=== PATIENT | male | born 1995 | race Caucasian/White ===

== ENCOUNTER 2019-07-01 17:40 | Emergency (ER) | payer BC ==
--- NOTE | 2019-07-01 18:24 | EDM.PDOC ---
ED HPI GENERAL MEDICAL PROBLEM - General Chief Complaint: Abdominal Pain Stated Complaint: VOMITING BLOOD Time Seen by Provider: 07/01/19 18:10 Source of Information: Reports: Patient History Limitations: Reports: No Limitations - History of Present Illness INITIAL COMMENTS - FREE TEXT/NARRATIVE: pt c/o sharp nonradiating 5/10 epigastric pain x 3-4 hrs, with nausea and recurrent emesis , indicated noticing blood with emesis, denies any blood in stool or diarrhea, report nl BM this morning, denies fever chills or any other associated sx, pt denies Hx of similar problems or any significant morbidities. pt report drinking 10 beers last night and denies heavy regular alcohol use. mid abd Pain Score (Numeric/FACES): 8 - Related Data Allergies Allergy/AdvReac Type Severity Reaction Status Date / Time No Known Allergies Allergy Verified 07/01/19 17:53 Home Meds: Home Meds NK [No Known Home Meds] 07/01/19 [History] Past Medical History - Past Health History Medical/Surgical History: Denies Medical/Surgical History Social & Family History - Tobacco Use Smoking Status *Q: Never Smoker - Caffeine Use Caffeine Use: Reports: None - Alcohol Use Days Per Week of Alcohol Use: 2 Number of Drinks Per Day: 12 Total Drinks Per Week: 24 - Recreational Drug Use Recreational Drug Use: No ED ROS GENERAL - Review of Systems Review Of Systems: See Below Constitutional: Reports: Fatigue. Denies: Fever, Chills HEENT: Reports: No Symptoms Respiratory: Reports: No Symptoms Cardiovascular: Reports: No Symptoms GI/Abdominal: Reports: Abdominal Pain, Anorexia, Decreased Appetite, Hematemesis , Nausea, Vomiting. Denies: Black Stool, Bloody Stool, Constipation, Diarrhea, Difficulty Swallowing, Hematochezia, Melena : Reports: No Symptoms Musculoskeletal: Reports: No Symptoms Neurological: Reports: No Symptoms Psychiatric: Reports: No Symptoms ED EXAM, GENERAL - Physical Exam Exam: See Below Exam Limited By: No Limitations General Appearance: Alert, Mild Distress. No: Anxious Nose: Normal Inspection Throat/Mouth: Normal Inspection, Normal Oropharynx Head: Atraumatic Neck: Normal Inspection, Supple, Full Range of Motion Respiratory/Chest: No Respiratory Distress, Lungs Clear, Normal Breath Sounds Cardiovascular: Normal Peripheral Pulses, Regular Rate, Rhythm GI/Abdominal: Normal Bowel Sounds, Soft, Tender (tender over the epigastric area. ). No: Guarding, Rebound Extremities: Normal Inspection Neurological: Alert, Oriented, No Motor/Sensory Deficits Psychiatric: Normal Affect Course - Vital Signs Text/Narrative:: labs and CT results were explained to pt, pt is resting conformably after fluids , zofran and 4 mg morphine, was given also Protonix. pt has leukocytosis without any overt sign of infection, will observe this for now. pt did not have any recurrent emesis, and clinically appear to have a simple case of gastritis. pt is medically stable for follow as out patient . pt to avoid alcohol use , start omeprazole and follow with PCP in 2 days for re- check. back here if needed. Last Recorded V/S: Last Vital Signs Temp 36.4 C 07/01/19 17:40 Pulse 98 07/01/19 17:40 Resp 16 07/01/19 17:40 BP 127/73 07/01/19 17:40 Pulse Ox 100 07/01/19 17:40 - Orders/Labs/Meds Orders: Active Orders 24 hr Category Date Time Status Abdomen Pelvis w Cont [CT] Stat Exams 07/01/19 20:03 Taken Ondansetron [Zofran] Med 07/01/19 18:25 Active 4 mg IVPUSH Q4H PRN Medication Orders Ondansetron HCl (Zofran) 4 mg IVPUSH Q4H PRN PRN Reason: Nausea/Vomiting Last Admin: 07/01/19 18:34 Dose: 4 mg Labs: Laboratory Tests 07/01/19 07/01/19 07/01/19 Range/Units 18:25 18:25 18:25 WBC 18.8 H (4.5-12.0) X10-3/uL RBC 5.23 (4.30-5.75) x10(6)uL Hgb 16.1 (13.5-17.8) g/dL Hct 46.8 (30.0-51.3) % MCV 89.6 (80-96) fL MCH 30.9 (27.7-33.6) pg MCHC 34.5 (32.2-35.4) g/dL RDW 12.3 (11.5-15.5) % Plt Count 331 (125-369) X10(3)uL MPV 8.2 (7.4-10.4) fL Add Manual Diff Yes Neutrophils % (Manual) 94 H (46-82) % Band Neutrophils % 4 (0-6) % Lymphocytes % (Manual) 1 L (13-37) % Monocytes % (Manual) 1 L (4-12) % Sodium 139 (135-145) mmol/L Potassium 4.5 (3.5-5.3) mmol/L Chloride 100 (100-110) mmol/L Carbon Dioxide 25 (21-32) mmol/L BUN 19 H (7-18) mg/dL Creatinine 1.1 (0.70-1.30) mg/dL Est Cr Clr Drug Dosing 117.03 mL/min Estimated GFR (MDRD) > 60 (>60) BUN/Creatinine Ratio 17.3 (9-20) Glucose 88 (80-116) mg/dL Calcium 9.5 (8.6-10.2) mg/dL Total Bilirubin 0.8 (0.1-1.3) mg/dL AST 25 (5-25) IU/L ALT 28 (12-36) U/L Alkaline Phosphatase 63 (56-112) IU/L Total Protein 8.6 H (6.0-8.0) g/dL Albumin 4.5 (3.5-5.2) g/dL Globulin 4.1 g/dL Albumin/Globulin Ratio 1.1 Amylase 46 (25-115) U/L Lipase 49 L (73-393) U/L Urine Color (YELLOW) Urine Appearance (CLEAR) Urine pH (5.0-6.5) Ur Specific [place] (1.010-1.025) Urine Protein (NEGATIVE) mg/dL Urine Glucose (UA) (NORMAL) mg/dL Urine Ketones (NEGATIVE) mg/dL Urine Occult Blood (NEGATIVE) Urine Nitrite (NEGATIVE) Urine Bilirubin (NEGATIVE) Urine Urobilinogen (NEGATIVE) mg/dL Ur Leukocyte Esterase (NEGATIVE) Urine RBC (0-5) Urine WBC (0-5) Ur Squamous Epith Cells (NS,R,O) Urine Bacteria (NS) 07/01/19 Range/Units 19:48 WBC (4.5-12.0) X10-3/uL RBC (4.30-5.75) x10(6)uL Hgb (13.5-17.8) g/dL Hct (30.0-51.3) % MCV (80-96) fL MCH (27.7-33.6) pg MCHC (32.2-35.4) g/dL RDW (11.5-15.5) % Plt Count (125-369) X10(3)uL MPV (7.4-10.4) fL Add Manual Diff Neutrophils % (Manual) (46-82) % Band Neutrophils % (0-6) % Lymphocytes % (Manual) (13-37) % Monocytes % (Manual) (4-12) % Sodium (135-145) mmol/L Potassium (3.5-5.3) mmol/L Chloride (100-110) mmol/L Carbon Dioxide (21-32) mmol/L BUN (7-18) mg/dL Creatinine (0.70-1.30) mg/dL Est Cr Clr Drug Dosing mL/min Estimated GFR (MDRD) (>60) BUN/Creatinine Ratio (9-20) Glucose (80-116) mg/dL Calcium (8.6-10.2) mg/dL Total Bilirubin (0.1-1.3) mg/dL AST (5-25) IU/L ALT (12-36) U/L Alkaline Phosphatase (56-112) IU/L Total Protein (6.0-8.0) g/dL Albumin (3.5-5.2) g/dL Globulin g/dL Albumin/Globulin Ratio Amylase (25-115) U/L Lipase (73-393) U/L Urine Color Yellow (YELLOW) Urine Appearance Clear (CLEAR) Urine pH 5.0 (5.0-6.5) Ur Specific [place] 1.030 H (1.010-1.025) Urine Protein 30 H (NEGATIVE) mg/dL Urine Glucose (UA) Normal (NORMAL) mg/dL Urine Ketones 50 H (NEGATIVE) mg/dL Urine Occult Blood Negative (NEGATIVE) Urine Nitrite Negative (NEGATIVE) Urine Bilirubin Negative (NEGATIVE) Urine Urobilinogen Normal (NEGATIVE) mg/dL Ur Leukocyte Esterase Negative (NEGATIVE) Urine RBC Not seen (0-5) Urine WBC 0-5 (0-5) Ur Squamous Epith Cells Few H (NS,R,O) Urine Bacteria Few H (NS) Meds: Medications Generic Name Dose Route Start Last Admin Trade Name Freq PRN Reason Stop Dose Admin Ondansetron HCl 4 mg 07/01/19 18:25 07/01/19 18:34 Zofran IVPUSH 4 mg Q4H PRN Administration Nausea/Vomiting Discontinued Medications Generic Name Dose Route Start Last Admin Trade Name Codyq PRN Reason Stop Dose Admin Diatrizoate Meglum/Diatrizoate Sod 30 ml 07/01/19 20:17 07/01/19 20:40 Gastrografin 37% PO 07/01/19 20:18 30 ml . DIRECTED ONE Administration Sodium Chloride 1,000 mls @ 999 mls/hr 07/01/19 18:25 07/01/19 18:34 Normal Saline IV 07/01/19 19:25 999 drops/hr .BOLUS ONE Administration Iopamidol 100 ml 07/01/19 20:17 07/01/19 20:40 Isovue-370 (76%) IV 07/01/19 20:18 100 ml . DIRECTED ONE Administration Morphine Sulfate 4 mg 07/01/19 18:25 07/01/19 18:35 Morphine IVPUSH 07/01/19 18:26 4 mg ONETIME ONE Administration Departure - Departure Time of Disposition: 21:28 Disposition: Home, Self-Care 01 Clinical Impression: Acute gastritis - Discharge Information Forms: ED Department Discharge - My Orders Last 24 Hours: My Active Orders 07/01/19 18:25 Ondansetron [Zofran] 4 mg IVPUSH Q4H PRN 07/01/19 20:03 Abdomen Pelvis w Cont [CT] Stat - Assessment/Plan Last 24 Hours: My Active Orders 07/01/19 18:25 Ondansetron [Zofran] 4 mg IVPUSH Q4H PRN 07/01/19 20:03 Abdomen Pelvis w Cont [CT] Stat
[2019-07-01] MEDS: Ondansetron 4 MG/2 ML SDV IVPUSH PRN (18:34)
[2019-07-01] MEDS: Sodium Chloride 0.9% 1,000 ML IV ONE (18:34)
[2019-07-01] MEDS: Morphine 2 MG/ML Syringe IVPUSH ONE (18:35)
[2019-07-01] MEDS: Iopamidol 755 Mg/ML 100 ML Bottle IV ONE (20:40)
[2019-07-01] MEDS: Diatrizoate Meglumine/Diatrizoate Sodium 37% 30 ML Bottle PO ONE (20:40)
[2019-07-01] MEDS: Pantoprazole 80 MG in Sodium Chloride 0.9% 100 ML IV ONE (21:36)
== END 2019-07-01 22:13 | disposition home or self-care (01) ==
LOC: FB.ED 17:40
DX: K29.00 Acute gastritis without bleeding (principal)
CPT/HCPCS: 36415; 74177; 80053; 81001; 82150; 83690; 85025; 96365; 96367; 96375; 99284; C9113; J2270; J2405; J7030; Q9963; Q9967